=== PATIENT | female | born 1945 | race Caucasian/White ===

== ENCOUNTER → 2019-07-31 | Outpatient (CLI) | payer MEDICARE ==
--- NOTE | 2019-07-31 15:35 | PCVCIMAG ---
APPROVED REPORT Study performed: 07/31/2019 13:37:46 EXAM: Comprehensive 2D, Doppler, and color-flow Echocardiogram Patient Location: Echo lab Status: routine BSA: 1.73 HR: 119 bpmBP: 158/80 mmHg Rhythm: Atrial Fibrillation Other Information Study Quality: Adequate Indications Murmur Atrial Fibrillation Dyspnea 2D Dimensions IVSd: 13.22 (7-11mm) LVDd: 49.46 mm PWd: 12.92 (7-11mm)Ascending Ao: 37.49 (22-36mm) LVDs: 34.35 (25-40mm) Left Atrium: 44.54 (27-40mm) Aortic Root: 31.71 mm LV Single Plane 4CH: 44.88 % LV Single Plane 2CH: 41.95 % Biplane EF: 42.8 % Volumes Left Atrial Volume (Systole) Single Plane 4CH: 91.18 mLSingle Plane 2CH: 93.96 mL LA ESV Index: 54.00 mL/m2 Aortic Valve AoV Peak Lit.: 1.63 m/s AO Peak Gr.: 10.66 mmHgLVOT Max P.22 mmHg LVOT Max V: 0.90 m/s AI Vmax: 4.73 m/s AI Avery: 3.17 m/s2 AI PHT: 432.56 ms Pulmonary Valve PV Peak Lit.: 0.73 m/sPV Peak Gr.: 2.18 mmHg Tricuspid Valve TR Peak Lit.: 2.61 m/s TR Peak Gr.: 27.36 mmHg Left Ventricle The left ventricle is normal size. There is normal LV segmental wall motion. Mild concentric left ventricular hypertrophy. Left ventricular systolic function is borderline lower limits of normal. LVEF is 50%. This study is not technically sufficient to allow evaluation of the LV diastolic function due to atrial fibrillation. Right Ventricle The right ventricle is normal size. The right ventricular systolic function is normal. Atria Left atrium is severely dilated. Right atrium is moderately dilated. Aortic Valve The aortic valve is normal in structure. Moderate aortic regurgitation. There is no aortic valvular stenosis. Mitral Valve The mitral valve is normal in structure. Mitral valve prolapse of the anterior leaflet. Moderate mitral regurgitation. No evidence of mitral valve stenosis. Tricuspid Valve The tricuspid valve is normal in structure. Mild to moderate tricuspid regurgitation with PAP of 34 mmHg. Pulmonic Valve The pulmonary valve is normal in structure. Trace pulmonic regurgitation. Great Vessels The aortic root is normal in size. IVC is normal in size and collapses >50% with inspiration. Pericardium There is no pericardial effusion. There is no pleural effusion. <Conclusion> The left ventricle is normal size. Mild concentric left ventricular hypertrophy. LVEF is 50%. This study is not technically sufficient to allow evaluation of the LV diastolic function due to atrial fibrillation. The right ventricle is normal size. Left atrium is severely dilated. Right atrium is moderately dilated. Moderate aortic regurgitation. The mitral valve is normal in structure. Mitral valve prolapse of the anterior leaflet. Moderate mitral regurgitation. Mild to moderate tricuspid regurgitation with PAP of 34 mmHg. The aortic root is normal in size. There is no pericardial effusion.
== END | disposition home or self-care (01) ==
LOC: PCVCIMAG 13:20
PROVIDERS: ATTEND Internal Medicine Cardiovascular Disease
DX: I08.3 Combined rheumatic disorders of mitral, aortic and tricuspid valves (principal); I11.9 Hypertensive heart disease without heart failure; R01.1 Cardiac murmur, unspecified; R06.00 Dyspnea, unspecified; I48.91 Unspecified atrial fibrillation; E78.00 Pure hypercholesterolemia, unspecified; R53.83 Other fatigue; R06.02 Shortness of breath; R07.9 Chest pain, unspecified; Z79.899 Other long term (current) drug therapy; Z72.89 Other problems related to lifestyle
CPT/HCPCS: 93005; 93306; G0463

== ENCOUNTER → 2019-08-01 | Outpatient (CLI) | payer MEDICARE ==
[~2019-08-01] MED LIST: REGADENOSON 0.4 MG/5 ML DISP.SYRIN. IV ONE
--- NOTE | 2019-08-01 16:47 | PCVCIMAG ---
APPROVED REPORT Imaging Protocol: Rest Tc-99m/Stress Tc-99m 1 day Study performed: 08/01/2019 13:16:03 Indication: Chest pain, Dyspnea, Atrial Fibrillation Patient Location: Out-Patient Stress Nurse: Nicolette Stanley RN, Maral Barth RN AR Tech:Allie CalderónARRON maeMT Ht: 5 ft 4 in Wt: 149 lbs BSA: 1.73 m2 HR: 88 bpm BP: 173/77 mmHg BMI: 25.5 Rhythm: Atrial Fibrillation Medical History Medical History: Hyperlipidemia, HTN Medications: Toprol, Lisinopril, Xarelto Allergies: No known drug allergies Cardiac Risk Factors: Age Pretest Chest Pain Characteristics: No chest pain Meds Held (24 hrs): Toprol 18 hours Resting Data Rest SPECT myocardial perfusion imaging was performed in supine position 45 minutes following the intravenous injection of 9.9 mCi of Tc-99m Sestamibi. Time of rest injection: 1230 Date: 08/01/2019 Administration Route: IV Administration Site: Left Hand Pharmacologic Stress Pharmacologic stress test was performed by injecting Regadenoson 0.4 mg IV push over 10-15 seconds immediately followed by the intravenous injection of 34.4 mCi of Tc-99m Sestamibi. Time of stress injection: 1400 Date: 08/01/2019 Administration Route: IV Administration Site: Left Hand Gated Stress SPECT was performed 45 minutes after stress injection. The images were gated to evaluate regional wall motion and calculate left ventricular ejection fraction. Stress Test Details Stress Test: Pharmacologic stress testing performed using 0.4 mg of regadenoson per 5 mL given IV over 10 seconds. Reason for pharmacologic stress test: physical limitation, Atrial Fibrillation. HRMax Heart Rate (APMHR): 149 bpm Resting HR: 88 bpmTarget HR (85% APMHR): 126 bpm Max HR Achieved: 117 bpm % of APMHR: 78 Recovery HR: 97 bpm BP Resting BP: 173/77 mmHg Max BP: 142/80 mmHg Recovery BP: 113/69 mmHg ECG Resting ECG: Atrial Fibrillation Stress ECG: Atrial Fibrillation, with rapid ventricular response Arrhythmia: None Recovery ECG: Atrial Fibrillation Clinical Reason for Termination: Completed protocol Stress Symptoms: Chest pressure, Lightheaded Symptoms resolved with caffeine. Stress ECG Conclusion ECG: Non-ischemic Study Quality Study: Good Study Data Post stress, the left ventricular ejection was 65%.. SSS: 6 SRS: 6 SDS: 0 TID = 1.18. Perfusion No evidence of stress induced ischemia or prior myocardial infarction. Wall Motion Normal left ventricular size and function with no regional wall motion abnormalities. Nuclear Conclusion No evidence of stress induced ischemia or prior myocardial infarction. Normal left ventricular size and function with no regional wall motion abnormalities. Apical thinning is noted. Post stress, the left ventricular ejection was 65%. No prior study available for comparison. Interpreted by: Oseas Antoine MD Electronically Approved: 08/01/2019 16:41:44 <Conclusion> ECG: Non-ischemic
== END | disposition home or self-care (01) ==
LOC: PCVCIMAG 12:02
PROVIDERS: ATTEND Internal Medicine Cardiovascular Disease
DX: I48.91 Unspecified atrial fibrillation (principal); R01.1 Cardiac murmur, unspecified; I34.1 Nonrheumatic mitral (valve) prolapse; R53.83 Other fatigue; I42.9 Cardiomyopathy, unspecified; E78.00 Pure hypercholesterolemia, unspecified; I10 Essential (primary) hypertension
CPT/HCPCS: 78452; 93005; 93017; A9500; G0463; J2785

== ENCOUNTER → 2019-08-27 | Outpatient (CLI) | payer MEDICARE | LOC: PCVCCLINIC 16:17 | PROVIDERS: ATTEND Internal Medicine | DX: I49.5 Sick sinus syndrome (principal); Z95.0 Presence of cardiac pacemaker; I10 Essential (primary) hypertension; E78.00 Pure hypercholesterolemia, unspecified; D68.59 Other primary thrombophilia; I48.91 Unspecified atrial fibrillation | CPT/HCPCS: G0463 ==